=== PATIENT | female | born 1950 | race Two or more races ===

== ENCOUNTER 2018-08-05 07:15 | Inpatient (IN) | payer OTHER ==
[~2018-08-05] VITALS: Ht 160 cm; Wt 98.4 kg
[2018-08-05] MEDS ORDERED: SYNTHROID88 MCG PO (10:08)
[2018-08-05] MEDS ORDERED: ATORVASTATIN CA20 MG PO (10:08)
[2018-08-05] MEDS ORDERED: METROPOLOL PO (10:08)
[2018-08-05] MEDS ORDERED: VERAPAMIL ER100 MG PO (10:09)
[2018-08-05] MEDS ORDERED: SINGULAIR10 MG PO (10:09)
[2018-08-05] MEDS ORDERED: PLAVIX75 MG PO (10:10)
[2018-08-05] MEDS ORDERED: ADVAIR 100-501 EACH IH (10:10)
[2018-08-05] MEDS ORDERED: ALBUTEROL0.63 MG/3 IH (10:10)
[2018-08-26] MEDS ORDERED: METOPROLOL SUCC25 MG PO (08:14)
[2018-08-28] MEDS ORDERED: ELIQUIS2.5 MG PO (15:59)
[2018-08-28] MEDS ORDERED: PERCOCET 5-3251 EACH PO (15:59)
[2018-08-28] MEDS ORDERED: CIPRO500 MG PO (15:59)
[2018-08-29] MEDS ORDERED: PERCOCET 5-3251 EACH PO (08:32)
[2018-08-29] MEDS ORDERED: ELIQUIS2.5 MG PO (08:32)
[2018-08-29] MEDS ORDERED: CIPRO500 MG PO (08:32)
== END 2018-08-29 10:15 | disposition home or self-care (01) | DRG 470 ==
LOC: SURH 08-12 07:15 → SURG 08-26 06:34 → O/R 08-26 06:34 → SURG 08-26 13:10
PROVIDERS: ADMIT Orthopaedic Surgery
PROC: 0MNP0ZZ Release Left Knee Bursa and Ligament, Open Approach (ICD-10-PCS; 2018-08-26)
PROC: 3E0F7GC Introduction of Other Therapeutic Substance into Respiratory Tract, Via Natural or Artificial Opening (ICD-10-PCS; 2018-08-26)
PROC: 0SRD0J9 Replacement of Left Knee Joint with Synthetic Substitute, Cemented, Open Approach (ICD-10-PCS; principal; 2018-08-26 10:45)
DX: M17.12 Unilateral primary osteoarthritis, left knee (principal); J45.21 Mild intermittent asthma with (acute) exacerbation; D62 Acute posthemorrhagic anemia; M81.0 Age-related osteoporosis without current pathological fracture; E07.89 Other specified disorders of thyroid; I11.9 Hypertensive heart disease without heart failure; G47.33 Obstructive sleep apnea (adult) (pediatric); E66.01 Morbid (severe) obesity due to excess calories; E03.8 Other specified hypothyroidism; E78.00 Pure hypercholesterolemia, unspecified